=== PATIENT | female | born 1975 | race Caucasian/White ===

== ENCOUNTER 2016-12-09 15:22 | Emergency (ER) | payer MEDICAID, OTHER ==
[~2016-12-09] VITALS: Ht 160 cm; Wt 60.0 kg
[2016-12-09 15:25] VITALS: Ht 160 cm; Wt 60.0 kg
[2016-12-09 16:25] LABS: ADD SCAN DIFF NO
[2016-12-09 16:28] LABS: ADD UMIC NO; UR ASCORBIC ACID 40 mg/dL (NEGATIVE); UR BILIRUBIN (Dip) NEGATIVE (NEGATIVE); UR BLOOD (Dip) NEGATIVE (NEGATIVE); UR CLARITY CLEAR (CLEAR); UR COLOR YELLOW (YELLOW); UR GLUCOSE (Dip) NEGATIVE (NEGATIVE); UR KETONES (Dip) TRACE mg/dL (NEGATIVE); UR LEUKOCYTE ESTERASE (Dip) NEGATIVE Leu/ul (NEGATIVE); UR NITRITE (Dip) NEGATIVE (NEGATIVE); UR SPECIFIC GRAVITY (Dip) 1.032 (1.003-1.030); UR TOTAL PROTEIN (Dip) NEGATIVE (NEGATIVE); UR UROBILINOGEN (Dip) NEGATIVE (NEGATIVE)
[2016-12-09 16:31] LABS: BASOPHILS % 0.3 % (0.0-2.0); EOSINOPHILS # 0.1 10^3/ul (0.0-0.5); EOSINOPHILS % 1.2 % (0.0-7.0); HEMATOCRIT 37.6 % (37.0-47.0); HEMOGLOBIN 12.7 g/dl (12.0-16.0); LYMPHOCYTES # 1.8 10^3/ul (0.8-2.9); LYMPHOCYTES % 19.4 % (15.0-51.0); MEAN CORPUSCULAR HEMOGLOBIN 33.6 pg (29.0-33.0); MEAN CORPUSCULAR HGB CONC 33.8 g/dl (32.0-37.0); MEAN CORPUSCULAR VOLUME 99.5 fl (82.0-101.0); MONOCYTE # 0.4 10^3/ul (0.3-0.9); MONOCYTES % 4.4 % (0.0-11.0); NEUTROPHIL # 6.9 10^3/ul (1.6-7.5); NEUTROPHILS % 74.4 % (39.0-77.0); PLATELET COUNT 271 10^3/UL (140-415); RED BLOOD COUNT 3.78 10^6/ul (4.20-5.40); RED CELL DISTRIBUTION WIDTH 12.4 % (11.5-14.5); WHITE BLOOD COUNT 9.2 10^3/ul (4.8-10.8)
--- NOTE | 2016-12-09 16:31 | RADRPT ---
PROCEDURE: US Obstetric less than 14 weeks. CLINICAL INDICATION: , vaginal bleeding TECHNIQUE: Transabdominal and transvaginal imaging of the pelvis was performed. Images are review ed on a high-resolution PACS workstation. COMPARISON: None available FINDINGS: Single intrauterine gestation is identified. heart rate is 104 bpm. [place]-rump length = 0.3 cm. Gestational age is 5 weeks 6 days and KIKI is 08/05/2017 by both LMP and ultrasound criteria. Right ovary is unremarkable. Left ovary is obscured by bowel gas. No adnexal mass or pelvic free fluid is identified. IMPRESSION: 1. Single live intrauterine with an estimated gestational age of 5 weeks 6 days by ultras ound criteria, as above. RPTAT: HDWR .Vincent Bowie MD, Date Time Electronically viewed and signed by .Vincent Bowie MD, on 12/09/2016 16:31 .R/
--- NOTE | 2016-12-09 16:43 | ERD ---
ER Documentation Chief Complaint Date/Time DATE: 12/09/16 TIME: 16:41 Chief Complaint VAGINAL BLEEDING, 5WKS? HPI This is a 41-year-old female that presents to the ER with vaginal bleeding for the last week. Patient states that yesterday she found out she was about 4-5 weeks . A0. Patient states that she has been using about 5 pads a day. She does admit to some pelvic pain. She denies any urinary frequency or dysuria. She denies any vaginal discharge. Patient denies any nausea vomiting or diarrhea. She denies any fevers or chills. ROS 12 point review of systems was done, all negative except per HPI. Allergies Allergies: Coded Allergies: No Known Allergy (Unverified , 12/09/16) PMhx/Soc History of Surgery: Yes (, Cholecystectomy.) Anesthesia Reaction: No Hx Neurological Disorder: No Hx Respiratory Disorders: No Hx Cardiac Disorders: No Hx Psychiatric Problems: No Hx Miscellaneous Medical Probl: No Hx Alcohol Use: No Hx Substance Use: No Hx Tobacco Use: No Smoking Status: Never smoker Physical Exam Vitals Vital Signs Date Time Temp Pulse Resp B/P Pulse Ox O2 Delivery O2 Flow Rate FiO2 12/09/16 15:25 99.1 100 20 115/71 98 Physical Exam GENERAL: The patient is well developed and appropriate for usual state of health , in no apparent distress. HEENT: Atraumatic. CHEST: Clear to auscultation bilaterally. There are no rales, wheezes or rhonchi. HEART: Regular rate and rhythm. No murmurs, clicks, rubs or gallops. ABDOMEN: Soft, nontender and nondistended. Good bowel sounds. No rebound or guarding. No gross peritonitis. No gross organomegaly or masses. No Galindo sign or McBurney point tenderness. BACK: No midline or flank tenderness. NEURO: Alert and oriented. Result Diagram: 12/09/16 1355 Results 24 hrs Laboratory Tests Test 12/09/16 13:55 12/09/16 15:00 White Blood Count 9.210^3/ul Red Blood Count 3.7810^6/ul Hemoglobin 12.7g/dl Hematocrit 37.6% Mean Corpuscular Volume 99.5fl Mean Corpuscular Hemoglobin 33.6pg Mean Corpuscular Hemoglobin Concent 33.8g/dl Red Cell Distribution Width 12.4% Platelet Count 96502^3/UL Mean Platelet Volume 10.0fl Neutrophils % 74.4% Lymphocytes % 19.4% Monocytes % 4.4% Eosinophils % 1.2% Basophils % 0.3% Nucleated Red Blood Cells % 0.0/100WBC Neutrophils # 6.910^3/ul Lymphocytes # 1.810^3/ul Monocytes # 0.410^3/ul Eosinophils # 0.110^3/ul Basophils # 0.010^3/ul Nucleated Red Blood Cells # 0.010^3/ul Urine Color YELLOW Urine Clarity CLEAR Urine pH 5.0 Urine Specific [place] 1.032 Urine Ketones TRACEmg/dL Urine Nitrite NEGATIVEmg/dL Urine Bilirubin NEGATIVEmg/dL Urine Urobilinogen NEGATIVEmg/dL Urine Leukocyte Esterase NEGATIVELeu/ul Urine Hemoglobin NEGATIVEmg/dL Urine Glucose NEGATIVEmg/dL Urine Total Protein NEGATIVEmg/dl Procedures/MDM Differential diagnosis: Threatened , missed , incomplete , ectopic , molar , UTI, pyelonephritis. At this time patient does have an intrauterine uterine gestation, etiology of vaginal bleeding is unknown, may be a threatened . Patient does not have any evidence of urinary tract infection or pyelonephritis. She is afebrile and well -appearing. Patient needs to follow-up with her primary care doctor within 1-2 days or return to ER sooner if symptoms worsen. My medical decision making shared with the patient she understands and agrees with plan. Departure Diagnosis: Primary Impression: Threatened Condition: Stable Patient Instructions: Possible Miscarriage (Threatened ) Additional Instructions: Llame al doctor MAANA y celeste modesta WILEY PARA DENTRO DE 1-[address].Dgale a la secretaria que nosotros le instruimos hacer esta wiley.Avise o llame si stevens condicin se empeora antes de la wiley. Regresa aqui si peor o no mejor. ELIZA FUNEZ Dec 09, 2016 16:43
[2016-12-09 17:46] VITALS: BP 118/76; PULSE 81; RESP 18; TEMP 98.8
== END 2016-12-09 17:48 | disposition home or self-care (01) ==
LOC: FTE 15:22
DX: O20.0 Threatened abortion (principal); Z3A.01 Less than 8 weeks gestation of pregnancy
CPT/HCPCS: 36415; 76801; 76817; 81003; 84702; 85025; 86900; 86901; Z7502